=== PATIENT | female | born 1990 | race American Indian/Alaskan Native ===

== ENCOUNTER 2024-11-16 15:38 | Outpatient (CLI) | payer OTHER, SELFPAY | END 2024-11-16 15:39 | disposition home or self-care (01) | LOC: NFLDREF 15:38 | PROVIDERS: Visit Provider Registered Nurse | DX: E03.9 Hypothyroidism, unspecified (principal) | CPT/HCPCS: 84443 ==

== ENCOUNTER 2024-12-02 11:44 | Outpatient (CLI) | payer OTHER, SELFPAY ==
--- NOTE | 2024-12-02 12:15 | CRLHL7_ITS ---
For Patients: As a result of the Century Cures Act, medical imaging exams and procedure reports are released immediately into your electronic medical record. You may view this report before your referring provider. If you have questions, please contact your health care provider. OBSTETRICAL ULTRASOUND ??? FOLLOW-UP, 12/02/2024 INDICATION: Gestational diabetes mellitus. Advanced maternal age. Obesity. CLINICAL HISTORY: TYREE by Ultrasound: 12/27/2024 Gestational Age: 36 weeks 3 days COMPARISON: 11/04/2024, 10/05/2024, 08/24/2024 TECHNIQUE: Real-time gaona-scale transabdominal imaging of the fetus was performed. FINDINGS: Fetus: Single Cervix: Not visualized positioning: Vertex Amniotic Fluid: 6.5 cm SDP Placenta technique: Transabdominal Placenta position: 6.5 heart rate: 155 bpm BIOMETRY: BPD: 9.1 cm, 36 weeks 6 days, 74.0% HC: 33.8 cm, 38 weeks 6 days, 78.8% AC: 33.6 cm, 37 weeks 3 days, 86.6% FL: 6.9 cm, 35 weeks 3 days, 21.9% FL/AC Ratio: 20.54% HC/AC ratio: 1.01 EFW: 3110 grams; 6 lbs. 14 oz. age by this ultrasound: 37 weeks 1 day TYREE by this ultrasound: 12/22/2024 Percentile by TYREE: 71.0% COMMENTS: Difficult to obtain head measurement due to low in pelvis. IMPRESSION: 1. Sonographic gestational age is 37 weeks 1 day and sonographic due date is 12/22/2024. Good correlation with dates. Normal interval growth. 2. Estimated weight is 71st percentile. Abdominal circumference is 87th percentile. BENJI AGEE M.D. Diagnostic Radiologist [email or web address] Transcribed: 3:[address]/Dictated by: Benji Agee MD @ 12/02/2024 3:17:00 PM (Electronically Signed)
== END 2024-12-02 11:45 | disposition home or self-care (01) ==
LOC: US 11:45
PROVIDERS: Visit Provider Registered Nurse
DX: O24.419 Gestational diabetes mellitus in pregnancy, unspecified control (principal); O09.523 Supervision of elderly multigravida, third trimester; O99.213 Obesity complicating pregnancy, third trimester; Z3A.37 37 weeks gestation of pregnancy
CPT/HCPCS: 76816; 87081; 87653

== ENCOUNTER 2024-12-08 05:59 | Inpatient (IN) | payer OTHER, SELFPAY ==
[2024-12-08] VITALS (16 sets, daily range): BP systolic 94–134; BP diastolic 50–72; PULSE 58–98; RESP 16; TEMP 36.8–37.1; O2SAT 95–100; BMI 40.7
[2024-12-08] MEDS: ONDANSETRON ODT 4 MG TAB PO (05:17)
--- NOTE | 2024-12-08 05:28 | PC.OBNST ---
NST Note NST Note Start: 12/08/24 03:34-03:54 Freq: ONCE Status: Active Protocol: Document 12/08/24 03:54 TAMAR (Rec: 12/08/24 05:28 TAMAR Desktop) NST Note 3 Para (# of births) 2 EDC 12/28/24 Gestational Age In 37 Weeks & 1 Days Weeks & Days High Risk Factors Diabetes - Gestational Diet Controlled Patient Presented Contractions/cramping with Complaint(s) of Reactive Yes Appropriate for Yes Gestational Age RN Nafisa RN Date 12/08/24 Reactive Yes Appropriate for Yes Gestational Age RN Dianna RN Date 12/08/24 OB NST charge Yes Complete NST Note Yes via Write Note The provider's electronic signature indicates the NST is reactive/appropriate for gestational age. *Note to provider: If an addendum is required, open the patient's chart and click on the note under the Nurse/Allied Health tab.
--- NOTE | 2024-12-08 06:41 | P.LDBA_ITS ---
Subjective History of Present Illness Date Seen: 12/08/24 Narrative: Patient is being admitted to Labor and Delivery in labor. She is a 34 year old at 37 2/7 weeks gestation. Her full history and physical was dictated by Nathan Menendez on 11/16/24 at PATT visit. Please see this for details. Patient came in to L&D this morning with concerns for regular and painful uterine contractions. Cervical check was found twice at 2cm and patient desired pain management and possibly stay until clinic appointment later today. Morphine and Vistaril given but around 6 am she was re checked cervix had changed to 4cm and recommendation was given for admission. Patient proceeded to have a precipitous vaginal delivery. Specific Issues/Plans G 3 P 2001 PATT at 34 2/7 weeks #Anemia. 11/16: hgb 10.9. Rec. qod iron supplement. 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 Gaucher disease is an autosomal recessive disorder that results from a deficiency of an enzyme that breaks down glucocerebroside. Without this enzyme, glucocerebroside and other substances build up in the body and cause problems in multiple organs. Most common symptoms include bone problems, hepatosplenomegaly, anemia, low platelets, and lung disease. Partner has been unable to coordinate his schedule for testing. Desires cord blood testing for gaucher's disease 3 mL of cord blood in an EDTA (purple top) tube, sent refrigerated.? The test will take 7-12 days.? Please order a?Miscellaneous test for ?Gaucher Disease, 8 Variants?,?Test code # 45352, CPT 22747. Form needs to be completed as well. Form completed 11/24. #Gestational diabetes, diet-controlled. She is checking a fasting, 75-90min postprandial, and random level at HS. 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 States nobody has ever followed up on her glucose values. Advised patient to check these 4 times a day (fasting and 2hr PP) and bring them to her next visit so that we can review the results. [x] 11/24: 16 total values since 11/11 - of these, all 6 fasting values are under goal but 6/10 postprandial values above goal. Reinforced diet/exercise. Reinforced QID monitoring/logging. [ ] visit with June recommended due to concern for potential insulin Weekly testing starting at 34 weeks Growth ultrasound every 4 weeks starting at 28 weeks Delivery recommended 39-40 weeks *sooner if poor control* #Hypothyroidism. Currently taking levothyroxine 225 mcg daily. TSH every trimester: 05/26: 5.1, 07/09: 2.6, 10/05: 2.2, 11/16: 1.09 #Multigravida advanced maternal age NIPS: low risk, carrier for Gaucher disease Level 2 ultrasound at 20 weeks Plan for serial growth ultrasounds beginning at 28 weeks IOL at 39 weeks #BMI 40-44.9 Hemoglobin A1c 5.7 Patient doesn't recall being told to initiate low dose aspirin Sleep study 'pending' per previous records MFM consult at level 2 ultrasound at 20 weeks -done Recommended weight gain 11-20 lb Serial growth ultrasound every 4 weeks starting at 28 weeks Weekly testing beginning at 34 weeks Anesthesia consult in the 3rd trimester -referral placed Plan continuous monitoring and IV access in labor. Will consider TXA for PPH prevention. Consider elective risk-reducing delivery at 39 weeks #Depression and anxiety: Zoloft 150 mg daily. #Varicella nonimmune. Plan for PP vaccine. #Palpitations 09/06/24. EKG, CBC, and thyroid labs completed. EKG normal. If symptoms return, will plan Estrada monitor. #Vit D deficiency. 15 on 05-26-24. Was on Vit D supplement. Covid: Flu: Tdap: 10/22/2024 - elsewhere RSV: declined 12/02/2024 May 25: Blood type is A positive, antibody screen is negative, hemoglobin 12.2, platelets 165, rubella positive 1.7, RPR nonreactive, hepatitis-B antigen nonreactive, hepatitis-B antibody positive, hepatitis B core negative, HIV[], Chlamydia gonorrhea both negative, urine culture no growth, hepatitis-C negative, varicella negative/nonimmune 0.4. Hemoglobin a, hemoglobin F, hemoglobin 8 to all normal. 05/26/24: Aneuploidy testing low risk. Carrier for Gaucher disease. 10/22/24: Tdap administered 05/17/2021 pap: normal, negative HPV Ultrasound 05/25/2024: [place]-rump length 24.7 mm. TYREE by current ultrasound measurements 9 weeks 1 day TYREE 12/27/2024. Single intrauterine with dating her full report. Ultrasound 08/09/24: tejeda IUP. variable presentation. no structural abnormalities or soft markers of aneuploidy. anatomy scan incomplete. scan significantly limited today. composite biometry consistent with assigned gestational age. amniotic fluid volume subjectively normal. placenta posterior with no placenta previa or vasa previa. no cervical shortening on transabdominal imaging. recommend f/u US in 1-4 weeks to complete anatomy survey. Ultrasound 08/24/24: tejeda IUP, breech presentation. no structural abnormalities or soft markers of aneuploidy identified. Ultrasound for growth 10/05/24:single IUP at 28w1d. measurements within expected range fo rage. cephalic positioning. Ultrasound for growth 11/04/24: Single IUP at 32w3d. Measurements within expected range for age. US 12/02: EFW 3110g at 71%ile - BPD 74%, 78.8%, AC 86.6%, FL 22%. FHR 155bpm, MVP 6.5cm. Vertex. OB - Problem Based A/P Additional Plan (1) : Status: Acute (2) Carrier of Gaucher disease: Status: Acute (3) Anxiety and depression: Status: Acute (4) BMI greater than 40: Status: Acute (5) Multigravida of advanced maternal age: Status: Acute (6) Gestational diabetes: Status: Acute (7) Anemia: Status: Acute (8) Hypothyroid: Status: Acute Plan Delivered precipitously, please refer to delivery note for details. OB Exam Physical Exam Vital signs: Pulse BP Pulse Ox 67 123/60 100 12/08/24 06:35 12/08/24 06:35 12/08/24 06:09 Detailed Labor and Delivery Exam Patient Gravid: yes Dilation (cm): 4 Effacement (%): 80 Tachysystole: No Contraction intensity: Strong/Firm Fetus (Single) Station: -1 Amniotic Membrane Status: intact Heart Rate Baseline: 150 Monitor Accelerations: Present Monitor Decelerations: Variable Nursing Home Variability: Moderate (6-25)
--- NOTE | 2024-12-08 06:48 | W.PM.OBVAGDE ---
OB Procedure Vag Delivery Mother Details Mother Details: The patient is a 34 year-old, 3, Para 2, admitted on 12/08/24 at 37 2/7 Days gestation. Patient came in to unit to rule out labor. Cervix was checked at 3am and found 2cm dilated, re checked about 1 hour later and found the same. Patient had asked for something for pain management and to wait on campus for her OB appointment later at 10am. Morphine and Vistaril was given at around 5:15am. Patient was starting to experience worsening pain and at around 5:50am she was found 4cm and recommendation was given for admission. Patient continued to progress very quickly and delivered precipitously. Nurses called in ED provider for help as I was not in the hospital. Nurses assisted with delivery with supervision of ED provider in unit. : 3 Para: 3 Weeks Gestation: 37.2 Admission Date: 12/08/24 Additional Details Amniotic Membrane Status: SROM Amniotic Membrane Rupture Date: 12/08/24 Amniotic Membrane Rupture Time: 06:00 Amniotic Membrane Fluid Description: Clear Analgesia/Anesthesia Type: None (Morphine and Vistaril given at 5:15am) and Fentanyl Waterbirth: No Pitcoin: No Intrapartal Events: Precipitous Labor <3 Hrs Labor Onset: 05:50 Complete: 06:10 Pushin:10 Heart: heart tones during second stage were category 1. Mild variables just prior to delivery. Delivery Details Delivery Date: 12/08/24 Delivery Time: 06:11 Route of delivery: Gender: Male Infant Viability: Alive; Heart Rate Present Position at Delivery: OA Delivery Details: Delivered via spontaneous vaginal delivery. was placed on maternal abdomen.? Cord was clamped and cut after a 30-60 second delay. Nose and mouth were bulb suctioned.? Infant weight pending. 1 Minute Interval Total Score: 5 5 Minute Interval Total Score: 5 10 Minute Interval Total Score: 8 Additional Details Shoulder Dystocia: No Placenta Delivery Time: 06:31 Placental Delivery Description: Spontaneous Procedure Done: Global Blood Loss: 300 Laceration: None Blood Loss Measurement Type: EBL Bakri Used: No Sponge/Need Count Correct: Yes Cord Vessel Description: 3 Vessels Event Summary Status: Mother and were stable after delivery. did require 4 min of PPV and CPAP for at least 25 minutes after delivery. Please see notes for additional details. Most likely due to precipitous delivery, recent maternal pain medication, SSRI use. Disposition: floor
[2024-12-08 09:10] LABS: Hematocrit* 33.1 % (33.0-51.0); Hemoglobin* 11.3 gm/dL (12.0-16.0); Immature Granulocytes Pct Auto 0.2 %; Lymphocytes Absolute Auto 0.60 K/uL (0.90-2.90); Mean Corpuscular HGB Conc 34 gm/dL (32-36); Mean Corpuscular Hemoglobin 26 pg (26-34); Mean Corpuscular Volume 77 fL (80-100); RDW Coefficient of Variation % 14.4 % (11.5-15.5); Red Blood Count* 4.32 m/uL (4.00-5.20); White Blood Count* 11.87 K/uL (4.50-11.00)
[2024-12-08 09:11] LABS: Immature Granulocytes Abs Auto 0.00 K/uL (0.00-0.30); Slide Review Reflex No
[2024-12-08] MEDS: DOCUSATE SODIUM 100 MG CAPSULE PO (11:35)
[2024-12-09 00:45] VITALS: BP 114/72; PULSE 59; RESP 16; TEMP 37; O2SAT 98
[2024-12-09 03:59] VITALS: BP 135/76; PULSE 54; RESP 16; TEMP 36.6; O2SAT 98
[2024-12-09 07:02] LABS: Hemoglobin* 10.7 gm/dL (12.0-16.0)
[2024-12-09] MEDS: LEVOTHYROXINE 75 MCG TABLET 225 MCG PO (07:03)
[2024-12-09 08:14] VITALS: BP 116/71; PULSE 67; RESP 16; TEMP 36.9; O2SAT 98
--- NOTE | 2024-12-09 08:19 | PM.OBDSVD1 ---
DS: Providers Provider Date Seen: 12/09/24 Date of admission: 12/08/24 05:59 Primary care physician: Not a Local Provider Admitting Clinician: Kala Arthur MD Attending Physician on discharge: Mary Anne Mauricio APRN, CNM DS: Diagnosis Discharge Diagnosis (1) Gestational diabetes: Status: Acute (2) care and examination immediately after delivery: Status: Acute (3) Lactating mother: Status: Acute Exam Narrative: Exam Narrative: GENERAL APPEARANCE:? normal affect, alert, no distress MOOD:? appropriate CHEST:? clear to auscultation HEART:? regular rate and rhythm ABDOMEN:? soft, non-tender the uterine fundus is At Umbilicus, Midline and is appropriate for the stage of recovery. PERINEUM:? mild edema of the perineum. EXTREMITIES:? normal and trace edema Const: Vital Signs, click to edit/add: Vital Signs - 24 hr 12/08/24 08:20 12/08/24 08:35 12/08/24 11:47 Temperature 98.3 F Pulse Rate 79 Pulse Rate [Pulse Oximeter] 79 Respiratory Rate 16 Blood Pressure 94/50 L 97/55 L Blood Pressure [Le ft Arm] 112/65 Pulse Oximetry 95 Oxygen Delivery Me thod Room Air 12/08/24 17:09 12/08/24 20:08 12/09/24 00:45 Temperature 98.8 F 98.7 F 98.6 F Pulse Rate Pulse Rate [Pulse Oximeter] 68 67 59 L Respiratory Rate 16 16 16 Blood Pressure Blood Pressure [Le ft Arm] 107/68 115/72 114/72 Pulse Oximetry 99 96 98 Oxygen Delivery Me thod Room Air Room Air Room Air 12/09/24 03:59 Temperature 97.8 F Pulse Rate Pulse Rate [Pulse Oximeter] 54 L Respiratory Rate 16 Blood Pressure Blood Pressure [Le ft Arm] 135/76 Pulse Oximetry 98 Oxygen Delivery Me thod Room Air OB - DS: Summary Hospital Course Hospital Course: Emma is a 34 y.o. G 3 P 3 who was admitted to L & D for spontaneous onset of labr. ?She had a NVD that was uncomplicated. The patient feels well. ?The pain is well controlled with current medications. ?She has no new complaints. ?She is breast feeding and reports things are going well. the patient has done well.? Vitals have been stable.? She has remained afebrile.? Has a good appetite, is tolerating a general diet. ?She is voiding without difficulty.? She is passing gas and has not had a bowel movement.?She is ambulating and denies any dizziness.?Has small amount of rubra lochia. Problems: denies Discharge home with baby.? Follow up in 2 weeks and 6 weeks.? , may see if needed? Hgb 10.7. ? GDMA1, completing 2 hour gct today. Will make plan after results are returned? For pain control of perineum, breast and pelvic pain, take 600 mg Ibuprofen every 6 hours as needed by mouth or 1000 mg acetaminophen (Tylenol) every 6 hours by mouth as needed. You can alternate these so you are taking something every 3 hours as needed. A heating pad can also be used for your abdomen or breasts. You may also take docusate sodium up to twice daily to soften your stools and help to prevent constipation. You may wean off of it when your stools return to normal.? Peripartum Data Infant delivery method: Vaginal Laceration description: None complications: none [place] Gender: Male Discharge Plan: Home Status at Discharge Functional status at discharge: independent ambulation Overall status at discharge: patient is progressing back to baseline Time Spent with Patient Time attestation: Total time spent providing and/or coordinating discharge services: Time spent: Less than 30 minutes Discharge Plan Discharge Disposition: Home, Self-Care Date of Admission: 12/08/24 05:59 Attending Provider on Discharge: Mary Anne Mauricio Primary Care Provider: Provider,Not a Local Condition: Stable Anticipated Discharge Date/Time: 12/09/24 12:00 Discharge Medications: New acetaminophen 500 mg Tablet 1,000 mg PO Q6H PRNQty: 0 0RF docusate sodium 100 mg Capsule 100 mg PO DAILY Qty: 90 0RF ibuprofen 600 mg Tablet 600 mg PO Q6H PRNQty: 0 0RF Continued levothyroxine 25 mcg tablet 25 mcg PO DAILY levothyroxine 200 mcg tablet 200 mcg PO DAILY DHA 200 mg capsule 200 mg PO DAILY PRN cholecalciferol (vitamin D3) [Dialyvite Vitamin D] 125 mcg (5,000 unit) capsule 125 mcg PO QDAY sertraline 150 mg capsule 150 mg PO QDAY ferrous sulfate 324 mg (65 mg iron) tablet,delayed release (DR/EC) 324 mg PO Q OTHER DAY Qty: 30 1RF Discontinued (DME) blood-glucose meter [OneTouch Ultra2 Meter] Misc See Rx Instructions .ROUTE .MEDSUPPLY Qty: 1 Rx Instructions: As directed (DME) OneTouch Ultra Test Strip See Rx Instructions .ROUTE QID Qty: 10 Rx Instructions: As directed (DME) lancets [OneTouch Delica Plus Lancet] 33 gauge misc See Rx Instructions .ROUTE QID Qty: 100 Rx Instructions: As directed Discharge Orders: Discharge Order (Routine); Ordered 12/09/24 Ordered By: Mary Anne Mauricio Patient Education: OB Over the Counter Medication Information, OB Vaginal/Breast Feeding Additional Instructions: Discharge instructions were reviewed with the patient including signs and symptoms of infection and home going medications Nothing vaginally for 6 weeks: no tampons or intercourse Off Work or School for 6 weeks 2-week visit: discuss infant feeding concerns, review control options and screen for anxiety/depression. 6-week visit for an annual exam. consultation services are available to all mothers and babies for the first year after delivery.? To make an appointment, please call [phone]. Activity Level: Activity as Tolerated Discharge Diet: Regular Follow Up Appointments: Provider,Not a Local [Primary Care Provider, Family Practice] Forms: Patient Belongings, MyHealth Info Instructions
[2024-12-09] MEDS: DOCUSATE SODIUM 100 MG CAPSULE PO (08:38)
[2024-12-09] MEDS: SERTRALINE 100 MG TABLET 150 MG PO (08:48)
[2024-12-09 09:19] LABS: Glucose 2 Hour 136 mg/dl (70-155)
[2024-12-09 15:19] VITALS: BP 115/74; PULSE 70; RESP 16; TEMP 37.1; O2SAT 97
[2024-12-09 23:00] VITALS: BP 107/67; PULSE 63; RESP 16; TEMP 36.7; O2SAT 97
[2024-12-10 04:45] VITALS: BP 127/75; PULSE 58; RESP 16; TEMP 36.7; O2SAT 96
[2024-12-10] MEDS: LEVOTHYROXINE 75 MCG TABLET 225 MCG PO (06:50)
--- NOTE | 2024-12-10 08:16 | PM.OBDSVD1 ---
DS: Providers Provider Date Seen: 12/10/24 Date of admission: 12/08/24 05:59 Primary care physician: Not a Local Provider Admitting Clinician: Kala Arthur MD Attending Physician on discharge: Pascale Mitchell CNM Date of Discharge: 12/10/24 DS: Diagnosis Discharge Diagnosis (1) Lactating mother: Status: Acute (2) care and examination immediately after delivery: Status: Resolved Exam Narrative: Exam Narrative: VSS, afebrile GENERAL APPEARANCE: ?normal affect, alert, no distress MOOD: ?appropriate HEENT: normocephalic, neck supple, full ROM CHEST: ?Symmetrical chest wall movement. ?Normal respiratory effort. ?Clear to auscultation HEART: ?regular rate and rhythm ABDOMEN: ?soft, non-tender. Uterine fundus is firm, 1 above Umbilicus, Midline and is appropriate for the stage of recovery. ?Bowel sounds present. PERINEUM: ?mild edema of the perineum, intact EXTREMITIES: ?normal and trace edema Const: Vital Signs, click to edit/add: Vital Signs - 24 hr 12/09/24 15:19 12/09/24 23:00 12/10/24 04:45 Temperature 98.8 F 98.1 F 98.0 F Pulse Rate [Pulse Oximeter] 70 63 58 L Respiratory Rate 16 16 16 Blood Pressure [Le ft Arm] 115/74 107/67 127/75 Pulse Oximetry 97 97 96 Oxygen Delivery Me thod Room Air Room Air Room Air Documenting provider has reviewed patient's vital signs: yes OB - DS: Summary Hospital Course Hospital Course: Emma is a 34 y.o. who was admitted to L & D for labor. ?She had an uncomplicated NVD.?The patient feels well. ?The pain is well controlled with current medications. ?She has no new complaints. ?She is breast feeding and reports things are going well.?She has also supplemented with formula per her request. the patient has done well.? Vitals have been stable.? She has remained afebrile.? Has a good appetite, is tolerating a general diet. ?She is voiding without difficulty.? She is passing gas and has not had a bowel movement.? She is ambulating and denies any dizziness.? Has Small amount of rubra lochia. ?She is planning an IUD for prevention. Peripartum Data Infant delivery method: Vaginal Laceration description: None [place] Infant Gender: Male Infant Discharge Plan: Home Status at Discharge Functional status at discharge: independent ambulation Overall status at discharge: patient is progressing back to baseline Time Spent with Patient Time attestation: Total time spent providing and/or coordinating discharge services: Time spent: Less than 30 minutes Discharge Plan Discharge Disposition: Home, Self-Care Date of Admission: 12/08/24 05:59 Attending Provider on Discharge: Pascale Mitchell Primary Care Provider: Provider,Not a Local Condition: Stable Anticipated Discharge Date/Time: 12/09/24 12:00 Discharge Medications: New acetaminophen 500 mg Tablet 1,000 mg PO Q6H PRNQty: 0 0RF docusate sodium 100 mg Capsule 100 mg PO DAILY Qty: 90 0RF ibuprofen 600 mg Tablet 600 mg PO Q6H PRNQty: 0 0RF Continued levothyroxine 25 mcg tablet 25 mcg PO DAILY levothyroxine 200 mcg tablet 200 mcg PO DAILY DHA 200 mg capsule 200 mg PO DAILY PRN cholecalciferol (vitamin D3) [Dialyvite Vitamin D] 125 mcg (5,000 unit) capsule 125 mcg PO QDAY sertraline 150 mg capsule 150 mg PO QDAY ferrous sulfate 324 mg (65 mg iron) tablet,delayed release (DR/EC) 324 mg PO Q OTHER DAY Qty: 30 1RF Discontinued (DME) blood-glucose meter [OneTouch Ultra2 Meter] Misc See Rx Instructions .ROUTE .MEDSUPPLY Qty: 1 Rx Instructions: As directed (DME) OneTouch Ultra Test Strip See Rx Instructions .ROUTE QID Qty: 10 Rx Instructions: As directed (DME) lancets [OneTouch Delica Plus Lancet] 33 gauge misc See Rx Instructions .ROUTE QID Qty: 100 Rx Instructions: As directed Discharge Orders: Discharge Order (Routine); Ordered 12/10/24 Ordered By: Pascale Mitchell Patient Education: OB Over the Counter Medication Information, OB Vaginal/Breast Feeding Additional Instructions: Discharge instructions were reviewed with the patient including signs and symptoms of infection and home going medications Nothing vaginally for 6 weeks: no tampons or intercourse Off Work or School for 6 weeks 2-week visit: discuss infant feeding concerns, review control options and screen for anxiety/depression. 6-week visit for an annual exam. consultation services are available to all mothers and babies for the first year after delivery.? To make an appointment, please call [phone]. Activity Level: Activity as Tolerated Discharge Diet: Regular Follow Up Appointments: Provider,Not a Local [Primary Care Provider, Family Practice] Forms: Patient Belongings, MyHealth Info Instructions
[2024-12-10 08:25] VITALS: BP 108/58; PULSE 66; RESP 16; TEMP 36.9; O2SAT 97
[2024-12-10] MEDS: DOCUSATE SODIUM 100 MG CAPSULE PO (09:07)
[2024-12-10] MEDS: SERTRALINE 100 MG TABLET 150 MG PO (09:07)
== END 2024-12-10 11:45 | disposition home or self-care (01) | DRG 807 ==
LOC: OB OUT 06:00 → OB 06:00
PROVIDERS: Obstetrics & Gynecology; Admitting Provider Obstetrics & Gynecology; Visit Provider Obstetrics & Gynecology
DX: O24.420 Gestational diabetes mellitus in childbirth, diet controlled (principal); O62.3 Precipitate labor; Z37.0 Single live birth; O99.02 Anemia complicating childbirth; D64.9 Anemia, unspecified; O99.284 Endocrine, nutritional and metabolic diseases complicating childbirth; E03.9 Hypothyroidism, unspecified; O99.344 Other mental disorders complicating childbirth; F32.A Depression, unspecified; F41.9 Anxiety disorder, unspecified; Z14.8 Genetic carrier of other disease; Z3A.37 37 weeks gestation of pregnancy
CPT/HCPCS: 36415; 59025; 82947; 82950; 85018; 85025; 86592; 86850; 86900; 86901; G0463; A9270; J2270; J2590